=== PATIENT | male | born 1940 | race Caucasian/White ===

== ENCOUNTER 2021-12-04 10:08 | Emergency (ER) | payer MEDICARE, SELFPAY ==
--- NOTE | ~2021-12-04 | XR_ITS ---
EXAMINATION: XR chest 2V DATE: 12/04/2021 11:07 INDICATION: Cough. TECHNIQUE: Frontal and lateral views of the chest were obtained on 3 radiographs. COMPARISON: None. FINDINGS: There is a moderate-sized pleural effusion. There is mild scarring at the lung apices. Ther e are airspace opacities in the lower lung zones, right worse than left. No pleural effusion or pneum othorax. The heart size is normal. IMPRESSION: 1. Airspace opacities in the lower lung zones, right worse than left, consistent with atelectasis melinda babak pneumonia. 2. Moderate-sized hiatal hernia. Reviewed, dictated and finalized at location A. IMPRESSION: 1. Airspace opacities in the lower lung zones, right worse than left, consisten t with atelectasis versus pneumonia. 2. Moderate-sized hiatal hernia.
[2021-12-04 10:20] VITALS: BP 129/64; PULSE 61; RESP 16; TEMP 38.2; O2SAT 96
--- NOTE | 2021-12-04 10:46 | ED.URI ---
HPI - URI/Sore Throat General Chief Complaint: Upper Respiratory Infection Stated Complaint: cough, congestion Time Seen by Provider: 12/04/21 10:46 Source: patient, RN notes reviewed and old records reviewed Mode of arrival: ambulatory Limitations: no limitations History of Present Illness HPI Narrative: 81-year-old male accompanied by presents with 1 week duration of dry cough, runny nose,and now fever elevation noted today. Patient denies any sore throat or any ear pain. Patient reports feeling fatigued, denies any shortness of breath or any noted wheezing. Patient reports that he has bee taking Robitussin for his cough. He report that he had asthma as child denies any recent tightness to chest or any chest paindoes have history of seasonal allergies. MD elicited complaint: cough Pertinent past history: asthma (Childhood) and seasonal allergies Onset (ago): day(s) (1) Consistency: progressively worsening Treatments prior to arrival: other (Robitussin) Related Data Allergies Allergy/AdvReac Type Severity Reaction Status Date / Time Penicillins AdvReac Rash Verified 12/04/21 10:31 Review of Systems Review of Systems: CONSTITUTIONAL: Positive fever, chills, or sweats. EYES: Denies visual changes, redness, or discharge. ENT: Positive rhinorrhea, congestion, no sore throat, or otalgia. CARDIOVASCULAR: Denies chest pain, palpitations, or edema. RESPIRATORY: Positive for cough denies dyspnea. GASTROINTESTINAL: Denies abdominal pain, nausea, vomiting, or diarrhea. GENITOURINARY: Denies dysuria or hematuria. SKIN: Denies rash or itching. MUSCULOSKELETAL: Denies back pain, joint pain, or myalgia, fatigue NEUROLOGIC: Denies headache, numbness, or weakness. PSYCHIATRIC: Denies anxiety or depression. All systems reviewed & are unremarkable except as noted in HPI and below PMFSH Past Medical History Medical History (Updated 12/04/21 @ 11:34 by Kate Lyons NP) Asthma Atrial fibrillation BPH (benign prostatic hyperplasia) DVT (deep venous thrombosis) Hypertension Pulmonary embolism Surgical History Surgical History (Updated 12/04/21 @ 11:26 by Kate Lyons NP) S/P right knee arthroscopy Social History Social History (Updated 12/04/21 @ 11:31 by Kate Lyons NP) Smoking status: Former smoker Additional smoking assessment comments: quit cigars 1968 Alcohol intake: unknown Substance use type: does not use Living arrangements: with family Occupation/Education: retired Gender identity (if verbalized by the patient): Male Comments At time of signature, agree with nursing past medical, surgical, social and family history. There is no relevant family history pertinent to the presenting complaint Exam Narrative: GENERAL: Well-appearing, well-nourished, and in no acute distress. HEAD: Normocephalic, atraumatic. EYES: PERRLA and EOMI. ENT: Nares red with clear rhinorrhea no epistaxis. Mucous membranes moist.TM's normal with good light reflex, throat mild redness with no lesions or exudates or any tonsil swelling NECK: Supple. no lymphadenopathy CHEST: Coarse breath sounds bilateral lung bases to auscultation. No respiratory distress.SAO2 96% on room air, no tachypnea or any acute dyspnea with exertion noted HEART: Regular rate and rhythm. No murmur heard. Normal peripheral pulses. ABDOMEN: Soft, nontender, nondistended, normal active bowel sounds. EXTREMITIES: Normal range of motion. No edema. SKIN: Warm, dry, no rash. NEURO: No focal deficits. Alert and oriented x3. Course Course Level of Care: Express Care Visit Vital Signs Vital signs: Vital Signs Temperature 38.2 C H 12/04/21 10:20 Pulse Rate 61 12/04/21 10:20 Respiratory Rate 16 12/04/21 10:20 Blood Pressure 129/64 12/04/21 10:20 Pulse Oximetry 96 12/04/21 10:20 Temperature 38.2 C H 12/04/21 10:20 Pulse Rate 61 12/04/21 10:20 Respiratory Rate 16 12/04/21 10:20 Blood Pressure 129/64 12/04/21 10:20 Pulse
== END 2021-12-04 11:45 | disposition home or self-care (01) ==
PROVIDERS: Emergency Provider Registered Nurse; PCP Internal Medicine
DX: J18.9 Pneumonia, unspecified organism (principal); J45.909 Unspecified asthma, uncomplicated; I48.91 Unspecified atrial fibrillation; N40.0 Benign prostatic hyperplasia without lower urinary tract symptoms; I10 Essential (primary) hypertension; Z86.718 Personal history of other venous thrombosis and embolism; Z86.711 Personal history of pulmonary embolism; Z87.891 Personal history of nicotine dependence
CPT/HCPCS: 71046; 99213; G0463

== ENCOUNTER → 2024-09-25 10:03 | Outpatient (REF) | payer MEDICARE, SELFPAY ==
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
--- OUTSIDE RECORDS SUMMARY | 2024-09-25 10:29 | XMS_ITS | Clinical Summary ---
Author Organization [facility] Address [address] [place] [address] Phone Care Team Providers Care Film Archivist Name Role Phone Unavailable Primary Care Provider Unavailabl e Allergies Active Allergy Reactions Criticality Noted Date Comments Penicillins Rash 03/17/2016 Medications benazepril (LOTENSIN) 40 MG Tablet TK 1 T PO QD 1 01/30/2016 Active hydroCHLOROthiaz lul 25 MG Tablet 3 12/13/2015 Ac tive warfarin (COUMADIN) 5 MG Tablet TK 2 TS PO QD 10 03/03/2016 Active traMADol (ULTRAM) 50 MG Tablet TK 1 T PO Q 8 H PRN 0 03/08/2016 Active LORATADINE ALLERGY RELIEF PO Take by mouth. Active RaNITidine HCl 150 MG Capsule Take by mouth. Active Ascorbic Acid (VITAMIN C) 1000 MG Tablet Take by mouth. Active Chetek-3 Fatty Acids (OMEGA-3 FISH OIL PO) Take by mouth. Active Probiotic Product (ADVANCED PROBIOTIC 10 PO) Take by mouth. Active Cholecalciferol (VITAMIN D-3 SUPER STRENGTH) 2000 UNIT Tablet Take by mouth. Active CINNAMON PO Take by mouth. Active tamsulosin (FLOMAX) 0.4 MG Capsule Take 1 Cap by mouth every morning. 90 Cap 3 08/10/2017 Active finasteride (PROSCAR) 5 MG Tablet Take 1 Tab by mouth daily. 90 Tab 3 08/10/2017 Active Active Problems Problem Noted Date Diagnosed Date BPH w urinary obs/LUTS 03/17/2016 Family History Medical History Relation Name Comments Heart Attack Father Diabetes Mother Relation Name Status Comments Father Mother Alive Social History Tobacco Use Types Packs/Day Years Used Date Smoking Tobacco: Former Cigars Smokeless Tobacco: Never Tobacco Cessation:Counseling Given: No Alcohol Use Standard Drinks/Week Comments No 0 (1 standard drink = 0.6 oz pur e alcohol) Sexually Active Control Partners Comments Never Sex and Gender Information Value Date Recorded Sex Assigned at Not on file Legal Sex Male 10:18 PM CDT Gender Identity Not on file Sexual Orientation Not on file Last Filed Vital Signs Vital Sign Reading Time Taken Comments Blood Pressure 126/76 03/30/2017 11:26 AM CDT Pulse 75 03/30/2017 11:26 AM CDT Temperature 36.7 C (98.1 F) 03/30/2017 11:26 AM CDT Respiratory Rate 16 03/30/2017 11:26 AM CDT Oxygen Saturation 97% 03/30/2017 11:26 AM CDT Inhaled Oxygen Concentration - - Weight 86.2 kg (190 lb) 03/30/2017 11:26 AM CDT Height 182.9 cm (6') 03/30/2017 11:26 AM CDT Body Mass Index 25.77 03/30/2017 11:26 AM CDT Plan of Treatment Health Maintenance Due Date Last Done Comments Hepatitis C Virus (HCV) Screening 1940 TdaP Immunization 1940 Pneumococcal Immunization (5 0+ years) (1 of 1 - PCV) 1992 Zoster Immunization (1 of 2) 1992 Respiratory Syncytial Virus (RSV) Immunization (Adult) (1 - 1-dose 75+ series) 2017 Influenza Immunization (#1) 2024 SARS-COV-2 Immunization ( - season) 2024 Hepatitis B Immunization Aged Out No longer eligible based on patient's age to complete this topic Meningococcal Immunization (ACWY) Aged Out No longer eligible based on patient's age to complete this topic Rotavirus Immunization Aged Out No lo nger eligible based on patient's age to complete this topic
--- OUTSIDE RECORDS SUMMARY | 2024-09-25 10:29 | XMS_ITS | Referral Summary ---
Author Organization [facility] Medical [facility] Building A Address [address] [place] [address] Care Team Providers Care Circulation Worker Name Role Phone Daniel Rodriges MD Primary Care Provider + Francisco Javier Gomez PT Unavailable Unavaila Cynthia Lewis PTA Unavailable Unavailab le Encounters Date Type Department Care Team Description 08/28/2024 7:40 AM LEVEL VIAL CURVATURE GAUGER - 08/28/2024 11:59 PM LEVEL VIAL CURVATURE GAUGER Hospital Encounter [facility] [address] [place] [address] Separation of muscle (nontraumatic), other site Discharge Disposition: Discharge to home or self care from Last 3 Months Allergies Active Allergy Reactions Criticality Noted Date [...] (01/08/2018): Added automatically from request for surgery [id number] Healthcare maintenance 06/26/2017 Medication management 06/26/2017 Benign [...] 12/18/2013 Overview (11/22/2016): Pulmonary embolism and infarction Immunizations Name Administration Dates Next Due Influenza, Split 07/19/2012,07/04/2011, 0 Influenza, Trivalent, High D ose, Split, Preservative Free, Intramuscular 06/30/2019,06/26/2017,06/19/2016,06/10,06/04/2014,06/04/2014,06/26/2013 Influenza, Trivalent, IM (MDV) 06/10/2009,2007,08/06/2007 Pneumococcal Conjugate PCV 13 12/10/2014, 015 Pneumococcal Polysaccharide PPV23 08/06/2007 Td, adsorbed 11/13/2007 ZOSTER LIVE 07/29/2012 ZOSTER Recombinant 06/19/2019,04/14/2019 Social History Tobacco Use Types Packs/Day Years [...] 02/21/2024 10:40 AM CDT Plan of Treatment Not on file Procedures Procedure Name Priority Date/Time Associated Diagnosis Comments US ABDOMEN LIMITED Schedule Routine, Read Routine (OP Routine) 08/28/2024 8:40 AM LEVEL VIAL CURVATURE GAUGER Separation of muscle (nontraumatic), other site from Last 3 Months Results * US Abdomen Limited (08/28/2024 8:40 AM LEVEL VIAL CURVATURE GAUGER) Anatomical Region Laterality Modality Abdomen N/A Ultrasound 08/28/2024 11:3 4 AM LEVEL VIAL CURVATURE GAUGER Narrative 08/28/2024 11:36 AM LEVEL VIAL CURVATURE GAUGER EXAM DESCRIPTION: US ABDOMEN LIMITED REASON FOR STUDY: Follow-up diastasis recti. TECHNIQUE: A Dynamic assessment was performed of the anterior abdominal wall by the telecasting engineer, with selected grayscale images acquired and recorded [...] Kristi Cueva M.D. TW: TW Report ID: [id number] Reading Location: [id number] Procedure Note Kristi Cueva MD - 08/28/2024 EXAM DESCRIPTION: US ABDOMEN LIMITED REASON FOR STUDY: Follow-up diastasis recti. TECHNIQUE: A Dynamic assessment was performed of the anterior abdominalwall by the telecasting engineer, with selected grayscale images acquired and recordedin PACS. COMPARISON: 06/07/2021 FINDINGS: Diastasis of the rectus abdominus musculature is noted. The diastasis measures 6.6 cm at rest, and 5.7 cm during Valsalva. No focal cystic orsolid mass IMPRESSION: Diastasis recti as described THIS IS AN ELECTRONICALLY VERIFIED FINAL REPORT 08/28/2024 11:36 AM - Electronically signed by Kristi Cueva M.D. TW: TW Report ID: [id number] Reading Location: [id number] us Ella Marinelli FITTING ROOM SUPERVISOR IMG US PROCEDURES Final Result from Last 3 Months Insurance AETNA MEDICARE GOLD AETNA MEDICARE GOLD AET[employer] MEDICARE GOLD Advance Directives For more information, please contact: [phone] * Full Code (Latest Code Status on File) Date Activated Date Inactivated Comments 07/23/2023 2:10 PM 07/27/2023 4:18 PM Care Teams Circulation Worker Relationship Specialty Start Date End Date Daniel Rodriges MD [address] [place] [address] PCP - General 10/30/12 Francisco Javier Gomez, PT Physical Therapist Physical Therapy 01/30/18 Cynthia Eckert, WHEAT CLEANER Physical Therapist Physical Therapy 02/22/18
--- OUTSIDE RECORDS SUMMARY | 2024-09-25 10:29 | XMS_ITS | CONTINUITY OF CARE DOCUMENT ---
Author Name elliot zarate Address Unknown Organization [facility] Address [address] [place] [address] Phone [phone] Care Team Providers Care Furniture Designer Name Role Phone Ganga SINGH, Daniel Unavailable [phone] Rupali Vo MD Unavailable [phone] VASU GANT MD Unavailable PROBLEMS Condition Status Date Provider Notes Atrial flutter active Daniel Schuler MD G E R D active Daniel Schuler MD Hypertension active Daniel Schuler MD Chronic ulcer of left lower leg active Cherie Schuler MD History of deep venous thrombosis active Wilson kasia Schuler MD Pulmonary embolism active Daniel Schuler MD ENCOUNTERS Date Type Provider Location Encounter Diag nosis - In-person encounter Office Visit [facility] - In-person encounter Office Visit [facility] - In-person encounter Office Visit [facility] - In-person encounter Office Visit [facility] - In-person encounter Office Visit [facility] Atrial flutterG E R DHypertensionChronic ulcer of left lower legHistory of deep venous thrombosisPulmonary embolism VITAL SIGNS Date Observation Value Provider Body Mass Index (Ratio) 26.44 kg/m2 Sund emelia Schuler MD blood pressure, diastolic 78 mm[Hg] Abby andrew Albert blood pressure, systolic 126 mm[Hg] Flor a Albert blood pressure, cuff size regular Abby andrew Albert weight E&M 195 [lb_av] Gina Albert pulse rate 95 /min Gina Albert oxygen saturation, oximetry 98 % Gina Albert Body Mass Index (Ratio) 26.85 kg/m2 Sund emelia Schuler MD blood pressure, diastolic 72 mm[Hg] Flores lechuga Gore blood pressure, systolic 137 mm[Hg] Denny mello Gore oxygen saturation, oximetry 98 % Alka Gore pulse rate 100 /min Alka sherwood weight E&M 198 [lb_av] Alka sherwood respiratory rate E&M 16 /min Sylvia burleson Gore blood pressure, cuff size large Flores lechuga Gore height E&M 72 [in_i] Alka sehrwood Body Mass Index (Ratio) 26.85 kg/m2 emelia Schuler MD blood pressure, cuff size regular Kr isty [place] blood pressure, diastolic 70 mm[Hg] Kr isty Turner blood pressure, systolic 130 mm[Hg] Kri sty Turner blood pressure, resting Yes Jacky ty [place] oxygen saturation, oximetry 99 % Jennifer Turner respiratory rate E&M 18 /min Jennifer Turner pulse rate 92 /min Jennifer [place] weight E&M 198 [lb_av] Jennifer Turner height E&M 72 [in_i] Jennifer [place] Body Mass Index (Ratio) 27.20 kg/m2 Sund emelia Schuler MD blood pressure, diastolic 70 mm[Hg] Sumit Tompkins blood pressure, systolic 120 mm[Hg] Quincy Tompkins pulse rate 95 /min Jennifer Tompkins oxygen saturation, oximetry 98 % Jennifer Tompkins respiratory rate E&M 18 /min Jennifer Tompkins blood pressure, cuff size regular Sumit Tompkins weight E&M 200.6 [lb_av] Jennifer Tompkins height E&M 72 [in_i] Jennifer Tompkins Body Mass Index (Ratio) 26.99 kg/m2 Cherie Schuler MD blood pressure, cuff size large Sumit Tompkins blood pressure, diastolic 70 mm[Hg] Sumit Tompkins blood pressure, systolic 120 mm[Hg] Quincy Tompkins oxygen saturation, oximetry 99 % Jennifer Tompkins pulse rate 84 /min Jennifer Tompkins respiratory rate E&M 18 /min Jennifer Tompkins blood pressure, resting Yes Jacky Tompkins weight E&M 199 [lb_av] Jennifer Tompkins height E&M 72 [in_i] Jennifer Turner ALLERGIES Allergy Name Onset Date Reaction Criticality Status CEPHALOSPORINS gi problems High Criticality act odalys AMOXICILLIN rash rash Low Criticality active PCN hives hives Low Criticality active RESULTS Date Observation Value Provider Reference Range Interpretation Location 2 lipoprotein, beta, serum, point, quantitative, calculated 97 mg/dL [facility] 0-99 2 HDL cholesterol, serum 61 mg/dL [facility] >39 2 triglyceride, serum, random 72 mg/dL [facility] 0-149 2 cholesterol, serum 172 mg/dL [facility] 326-502 8042/02/0 2 calcium, serum 9.4 mg/dL [facility] 8.6-10.2 2 carbon dioxide, venous blood 23 mmol/L [facility] 20-29 2 chloride, serum 104 mmol/L [facility] 96-106 2 potassium, serum 4.3 mmol/L [facility] 3.5-5.2 2 sodium, serum 139 mmol/L [facility] 529-808 7634/02/0 2 urea nitrogen/creatinin e ratio, serum 19 [facility] 10-24 2 eGFR if 68 mL/min/{1. 73_m2} [facility] >59 2 eGFR if not 59 mL/min/{1. 73_m2} [facility] >59 Low 2 creatinine, serum 1.18 mg/dL [facility] 0.76-1.27 2 urea nitrogen, blood 23 mg/dL [facility] 8-27 2 blood glucose, random 109 mg/dL [facility] 65-99 High 2 prothrombin time (patient) 22.4 s [facility] 9.1-12.0 High 2 international normalized ratio (INR) 2.2 [facility] 0.9-1.2 High 2 basophil count, absolute 0.1 x10E3/uL [facility] 0.0-0.2 2 Eosinophil Absolute Count 0.2 X10E3/UL [facility] 0.0-0.4 2 monocyte count, blood, automated 0.6 X10E3/UL [facility] 0.1-0.9 2 lymphocyte count, blood, automated 1.2 X10E3/UL [facility] 0.7-3.1 2 Absolute Neutrophils 3.0 X10E3/UL [facility] 1.4-7.0 2 basophils as percent of blood leukocytes 1 % [facility] Not Estab. 2 eosinophils as percent of blood leukocytes 4 % [facility] Not Estab. 2 monocytes as percent of blood leukocytes 12 % [facility] Not Estab. 2 lymphocytes as percent of blood leukocytes 24 % [facility] Not Estab. 2 neutrophils as percent of blood leukocytes 59 % [facility] Not Estab. 2 platelet count 243 X10E3/UL [facility] [phone]/02/0 2 red blood cell distribution width 12.8 % [facility] 11.6-15.4 2 mean corpuscular hemoglobin concentration, RBC 31.5 G/DL [facility] 31.5-35.7 2 mean corpuscular hemoglobin, RBC 29.2 pg [facility] 26.6-33.0 2 mean corpuscular volume, RBC 93 fL [facility] 79-97 2 hematocrit, blood 38.7 % [facility] 37.5-51.0 2 hemoglobin, blood 12.2 g/dL [facility] 13.0-17.7 Low 2 erythrocyte (RBC) count 4.18 X10E6/UL [facility] 4.14-5.80 2 leukocyte count, blood 5.0 X10E3/UL [facility] 3.4-10.8 HISTORY OF MEDICATION USE Medication Status Instructions Dates Provider Indications Com ments Santyl 250 unit/gram ointment active Apply 1 a small amount to skin once a day as needed Daniel Schuler MD #30, 30 days supply, Prescribed by SANTOS TURCIOS, Filled 08/16/2020 CALCIUM + D3 TABLET 2,000 active Take 1 tablet by mouth once a day Jennifer Tompkins famotidine 20 mg tablet active Take 1 tablet by mouth once a day Jennifer Tompkins PRO-BIOTIC active Take 1 tablet by mouth once a day Jennifer Tompkins CINNAMON TABLET active Take 2000 unit once a day Jennifer Tompkins FISH OIL 2000 MG ORAL CAPSULE active Take 1 tablet by mouth once a day Jennifer Tompkins ascorbic acid (vitamin C) 1,000 mg tablet active Take 1 tablet by mouth once a day Jennifer Tompkins warfarin 5 mg tablet active Take 1 tablet by mouth Jennifer Tompkins #90, 90 days supply, Prescribed by KOURTNEY GANT, Filled 06/09/2020 montelukast 10 mg tablet active Take 1 tablet by mouth once a day Jennifer Tompkins #90, 90 days supply, Prescribed by TEREZA MURPHY, Filled 06/09/2020 tamsulosin 0.4 mg capsule active Take 1 capsule by mouth once a day Jennifer Tompkins #90, 90 days supply, Prescribed by KOURTNEY GANT, Filled 07/12/2020 tramadol 50 mg tablet active Take 1 tablet by mouth three times a day as needed Jennifer Tompkins #90, 30 days supply, Prescribed by SANTOS TURCIOS, Filled 07/19/2020 metoprolol tartrate 25 mg tablet active Take 0.5 tablet by mouth twice a day Jennifer Tompkins #90, 90 days supply, Prescribed by KOURTNEY GATN, Filled 08/08/2020 triamterene-hyd rochlorothiazid 75-50 mg tablet active Take 1 tablet by mouth once a day Jennifer Tompkins #90, 90 days supply, Prescribed by KOURTNEY GANT, Filled 08/10/2020 Santyl 250 unit/gram ointment completed Apply to skin once a day as needed - Daniel Schuler MD #30, 30 days supply, Prescribed by SANTOS TURCIOS, Filled 08/16/2020 losartan 50 mg tablet active Take 1 tablet by mouth once a day Jennifer Tompkins #90, 90 days supply, Prescribed by KOURTNEY GANT, Filled 08/16/2020 mupirocin 2% ointment active Apply to skin Jennifer Tompkins #22, 15 days supply, Prescribed by TEREZA MURPHY, Filled 08/23/2020 SOCIAL HISTORY Date Observation Value Provider smoking, year quit 1968 Alka Gore cigarette use yes Alka Zaldivar nd smoking status Former smoker Alka panda smoking, year quit 1967 Jennifer palumbo cigarette use yes Jennifer Tompkins smoking status Former smoker Jennifer Tompkins smoking, year quit 1967 Jennifer palumbo cigarette use yes Jennifer Tompkins smoking status Former smoker Jennifer Tompkins social history reviewed E&M revi ewed - no changes required Daniel Schuler MD social history E&M Patient is a former smoker. Smoking History: Taylor gomez is a former smoker. Daniel Schuler MD smoking, year quit 1967 Jennifer palumbo cigarette use yes Jennifer Tompkins smoking status Former smoker Jennifer Tompkins FAMILY HISTORY Family Member Condition Father [place] male <55 Mother [place] female <65 Full Sister Family History Coron zach Heart Disease female < 65: Father Family History Coron zach Heart Disease male < 55: INSURANCE PROVIDERS Payer name Policy type / Coverage type [place] libertarian ID [employer] MEDICARE GOLD ADVANTAGE HMO Medicare [id number] ADVANCE DIRECTIVES Name Date DISCUSSED - NO DECISION MADE TREATMENT PLAN Date Name Performer [id number],C, c hronic a fib o n oac Daniel Schuler MD [id number],C, B P today: 126/78 P rior BP: 137/72 (05/08/2022) Labs Reviewed: C reat: 1.18 (09/21/2020) C hol: 172 (09/21/2020) HDL: 61 (09/21/2020) Daniel Schuler MD [id number],C, s/p Right GSV venaseal 05/2022 - right medial malleolar wound has now healed. Daniel Schuler MD [id number],C, r emains on coumadin Daniel Schuler MD [id number],C, r emains on coumadin Daniel Schuler [id number],C,c hronic a fib o n oac Daniel Schuler [id number],CL beulah Mccann is here for f/u of chronic hernando hypertension. He had left leg venos ulcer and healed a month after his interventon. Now has right medial malleolar ulcer. Going on for 3 weeks and has not been seen Dr Vo. He is wearing compression socks. Doppler shows 1 . No evidence of a deep vein thrombosis of the right lower extremity. 2 . Significant venous insufficiency of the right great saphenous vein. 3 . Significant venous insufficiency of the right small saphenous vein. Will recommend right gsv ablation. Danieltaylor Schuler MD [id number],C, o n warfarin Cardiology: berta hronic a fib o n oac Cardiology: B P today: 126/78 P rior BP: 137/72 (05/08/2022) Labs Reviewed: C reat: 1.18 (09/21/2020) C hol: 172 (09/21/2020) HDL: 61 (09/21/2020) Daniel Ganga SINGH Cardiology: s/p Right GSV venaseal 05/2022 - right medial malleolar wound has now healed. Danielemelia Schuler MD Cardiology: r emains on coumadin Daniel Ganga SINGH Cardiology: r emains on coumadin Daniel Schuler Cardiology:chronic a fib o n oac Cardiology:Oscar pal is here for f/u of chronic hernando hypertension. He had left leg venos ulcer and healed a month after his interventon. Now has right medial malleolar ulcer. Going on for 3 weeks and has not been seen Dr Vo. He is wearing compression socks. Doppler shows 1 . No evidence of a deep vein thrombosis of the right lower extremity. 2 . Significant venous insufficiency of the right great saphenous vein. 3 . Significant venous insufficiency of the right small saphenous vein. Will recommend right gsv ablation. Daniel Schuler MD Cardiology: o n warfarin Daniel Schuler MD Cardiology:on warfarin D as Cardiology:on warfarin Daniel D as Cardiology: H is updated medication list for this problem includes: Metoprolol Tartrate 25 Mg Oral Tablet (Metoprolol tartrate) ..... Take 1/2 tablet by mouth two times a day Triamterene-hctz 75-50 Mg Oral Tablet (Triamterene-hctz) ..... Take 1 tablet by mouth every day Losartan Potassium 50 Mg Oral Tablet (Losartan potassium) ..... Take 1 tablet by mouth every day BP today: 130/70 P rior BP: 120/70 (09/15/2020) Labs Reviewed: C reat: 1.18 (09/21/2020) C hol: 172 (09/21/2020) HDL: 61 (09/21/2020) Daniel Schuler MD Cardiology:Oscar pal is here for f/u of chronic ulcers to left medial albert, present for 3 weeks, referred by Dr Vo. H is venous doppler shows monophasic flow in the left SFJ and b/l venous insufficiency. He was recommended to have evaluation for MTS but this was negative. T hen he had Left gsv ablation done. H is left anterior albert wound has healed and he has been released from wound care. Discoloration is still there. HIs edema is better and he can wear boots that he had not been able to wear previously. Daniel Schuler MD Cardiology: H is updated medication list for this problem includes: Metoprolol Tartrate 25 Mg Oral Tablet (Metoprolol tartrate) ..... Take 1/2 tablet by mouth two times a day Triamterene-hctz 75-50 Mg Oral Tablet (Triamterene-hctz) ..... Take 1 tablet by mouth every day Losartan Potassium 50 Mg Oral Tablet (Losartan potassium) ..... Take 1 tablet by mouth every day Daniel Schuler MD Cardiology:had dvt l le remote b ut this is not c/w mts w ill evaluate m ay have central stenois or occlusion Daniel Schuler MD Cardiology:His venou s doppler shows monophasic flow in the left SFJ and b/l venous insufficiency. will recommend eval for mts first Daniel Shculer MD Cardiology:hx lle dv t and pe 10-12 years ago o n warfarin with inr per pcp Danielemelia Schuler MD Cardiology:hx lle dv t and pe 10-12 years ago o n warfarin with inr per pcp Danielemelia Schuler MD Cardiology:evaluatio n of chronic ulcers to left medial albert, present for 3 weeks, referred by Dr Vo. Reports BLE edema, LLE>RLE. History of DVT LLE and PE, occured 10-12 years ago. States he had non-healing ulcer left medial ankle in 2011, finally healed up with wound care therapy. Reports BLE discoloration, LLE>RLE. Denies pain, weakness in legs with ambulation. Has been using light weight compression stockings for several years. Has trouble getting stronger compression stockings on in past. ceap 6 l ikely venous reflux or post phlebitic syndrome a lso has possiblity of may-thurner as sx always lle>rle c heck venous reflux h as palpable left P butcould not feel dp - will check arterial dopplers also Daniel Schuler MD Cardiology:BP today: 120/70 Daniel Schuler MD Cardiology:chronic a fib (per pt) A flutter on EKG r ate controlled a sx u sed to follow with cardiology but since pt asx, they just did rate control/oac o n warfarin with inr per pcp Daniel Schuler MD Date Name Venous Doppler Unila teral RLE Venous Doppler Bilat eral LE - Reflux Venous Doppler Bilat eral LE PROTHROMBIN TIME WIT H INR CBC (INCLUDES DIFF/P LT) LIPID PANEL BASIC METABOLIC PANE L W/EGFR Venous Doppler Bilat eral LE - Reflux Arterial Duplex Bi-L yudy EX HISTORY OF PROCEDURES Procedure Date Procedure Name Provider Procedure Notes S tatus EKG Daniel Schuler MD completed EKG Daniel Schuler MD completed
== END ==
LOC: ANHLAB 10:03
PROVIDERS: PCP Internal Medicine; Visit Provider Plastic Surgery
DX: D03.22 Melanoma in situ of left ear and external auricular canal (principal); L30.8 Other specified dermatitis; L57.8 Other skin changes due to chronic exposure to nonionizing radiation
CPT/HCPCS: 88305